=== PATIENT | male | born 1960 | race Caucasian/White ===

== ENCOUNTER 2022-04-11 06:33 | Emergency (ER) | payer MEDICAID ==
[~2022-04-11] VITALS: Ht 172.7 cm; Wt 61.4 kg
[2022-04-11] MEDS ORDERED: HYDROcodone/acetaminophen 5mg/325mg tablet PO ONE (07:55)
[2022-04-11] MEDS ORDERED: ketorolac tromethamine 15mg/ml inj. IV ONE (07:55)
[2022-04-11] MEDS ORDERED: morphine 4 MG/ML inj SYRINge IV ONE (07:55)
[2022-04-11] MEDS ORDERED: HYDR-3965 PO (08:07)
[2022-04-11 08:21] VITALS: BP 157/84
== END 2022-04-11 08:23 | disposition home or self-care (01) ==
LOC: ER 06:36
DX: S46.011A Strain of muscle(s) and tendon(s) of the rotator cuff of right shoulder, initial encounter (principal); E78.00 Pure hypercholesterolemia, unspecified; I11.9 Hypertensive heart disease without heart failure; K21.9 Gastro-esophageal reflux disease without esophagitis; Z88.6 Allergy status to analgesic agent; Z88.5 Allergy status to narcotic agent; F17.200 Nicotine dependence, unspecified, uncomplicated; W19.XXXA Unspecified fall, initial encounter; Y93.89 Activity, other specified; Y92.89 Other specified places as the place of occurrence of the external cause; Y99.8 Other external cause status
CPT/HCPCS: 73030; 96374; 96375; 99284; J1885; J2270

== ENCOUNTER 2022-08-24 14:38 | Outpatient (CLI) | payer BC ==
[2022-08-24 15:59] LABS: BASOPHILS # (AUTO) 0.1 X10'3 (0-0.2); BASOPHILS % (AUTO) 1.1 % (0-1); EOSINOPHILS # (AUTO) 0.1 X10'3 (0-0.9); LYMPHOCYTES % (AUTO) 20.2 % (21-51); MEAN CORPUSCULAR HEMOGLOBIN 36.4 PG (27.0-31.0); MEAN CORPUSCULAR HGB CONC 34.1 g/dL (33.0-36.5); MEAN CORPUSCULAR VOLUME 106.9 FL (78-98); MEAN PLATELET VOLUME 6.8 FL (7.4-10.4); MONOCYTES # (AUTO) 0.4 X10'3 (0-0.9); MONOCYTES % (AUTO) 9.1 % (2-12); NEUTROPHILS # (AUTO) 3.2 X10'3 (1.8-7.7); NEUTROPHILS % (AUTO) 66.6 % (42-75); PRE OP HEMATOCRIT 47.8 % (42.0-52.0); PRE OP HEMOGLOBIN 16.3 g/dL (14.0-17.9); PRE OP PLATELET COUNT 102 X10'3 (140-440); RED BLOOD COUNT 4.47 X10'6 (4.70-6.10); RED CELL DISTRIBUTION WIDTH 13.9 % (11.5-14.5)
[2022-08-24 15:59] LABS: CLARITY,URINE CLEAR (Clear); COLOR,URINE YELLOW (Yellow); GLUCOSE, URINE 100 mg/dl (Neg); KETONES,URINE NEGATIVE (Neg); LEUKOCYTE ESTERASE ,URINE NEGATIVE (Neg); NITRITES, URINE NEGATIVE (Neg); OCCULT BLOOD,URINE TRACE-INTACT (Neg); PH,URINE 7.5 (4.8-8.0); PROTEIN,URINE NEGATIVE (Neg)
[2022-08-24 16:05] LABS: UA COLLECTION TYPE CLN CATCH MIDSTREAM
[2022-08-24 16:06] LABS: HYALINE CASTS 0-3 /LPF (NEGATIVE); MUCUS STRANDS FEW /LPF (Neg); SQUAMOUS EPITHELIAL CELL,UR FEW /LPF (FEW)
[2022-08-24 16:07] LABS: BACTERIA,URINE FEW /HPF (Neg); WBC,URINE 0-4 /HPF (0-4)
[2022-08-24 16:27] LABS: ALBUMIN 3.7 G/DL (3.4-5.0); ALKALINE PHOSPHATASE 78 IU/L (46-116); BLOOD UREA NITROGEN 10 MG/DL (7-18); CALCIUM 9.7 MG/DL (8.5-10.1); CHLORIDE 103 MMOL/L (99-107); CREATININE 1.11 MG/DL (0.60-1.10); PRE OP ALT 76 U/L (30-65); PRE OP ANION GAP 8 (8-16); PRE OP AST 102 U/L (10-37); PRE OP BILIRUB, TOTAL 1.1 MG/DL (0.0-1.0); PRE OP GLUCOSE 84 MG/DL (70-104); PRE OP POTASSIUM 4.1 MMOL/L (3.4-5.1); PRE OP SODIUM 143 MMOL/L (135-145); TOTAL CARBON DIOXIDE 32.4 MMOL/L (24-32); TOTAL PROTEIN 7.3 G/DL (6.4-8.2); eGFR 67 ML/MIN
[2022-08-24] MEDS ORDERED: LOSA1TAB36 PO (17:10)
[2022-08-24] MEDS ORDERED: LANS30CA37 PO (17:10)
[2022-08-24] MEDS ORDERED: SILD100T70 PO (17:17)
[2022-08-24] MEDS ORDERED: LOSA25TA41 PO (17:17)
[2022-08-24] MEDS ORDERED: ATOR40TA72 PO (17:17)
[2022-08-24] MEDS ORDERED: BROM2.5T18 PO (17:17)
[2022-08-24] MEDS ORDERED: METO25TA6 PO (17:17)
[2022-08-24] MEDS ORDERED: ASPI-1475 PO (17:17)
[2022-08-24] MEDS ORDERED: CLOP75TA34 PO (17:17)
[2022-08-24] MEDS ORDERED: PANT40TA54 PO (17:17)
== END 2022-08-24 23:59 | disposition home or self-care (01) ==
LOC: LAB 14:38 → EDSTATUS 08-30 10:30
PROVIDERS: ATTEND Surgery
DX: Z01.812 Encounter for preprocedural laboratory examination (principal); K40.20 Bilateral inguinal hernia, without obstruction or gangrene, not specified as recurrent
CPT/HCPCS: 36415; 80053; 81001; 85025

== ENCOUNTER 2022-09-03 20:09 | Inpatient (IN) | payer BC ==
[~2022-09-03] VITALS: Ht 172.7 cm; Wt 56.8 kg
[~2022-09-03 20:09] MED LIST: ASPI-1475 PO; ATOR40TA72 PO; BROM2.5T18 PO; CLOP75TA34 PO; LOSA25TA41 PO; METO25TA6 PO; PANT40TA54 PO; SILD100T70 PO; heparin 10,000 units/1 ML INJ ONE; heparin, porcine-25,000 units/D5-250ml premix IV ONE
[2022-09-03] MEDS ORDERED: nitroGLYCERIN 0.4mg/hour patch TD ONE (20:30)
[2022-09-03] MEDS ORDERED: ondansetron/PF 4mg/2ml inj IV ONE (20:35)
[2022-09-03] MEDS ORDERED: midazolam 1 mg/ML 2ml injection ONE (20:43)
[2022-09-03] MEDS ORDERED: nitroGLYCERIN-Tridil 50MG/D5W 250 ML IV ONE (20:43)
[2022-09-03] MEDS ORDERED: fentaNYL/PF 50MCG/1 ML 2ML syringe ONE (20:43)
[2022-09-03] MEDS ORDERED: LIDOcaine 1% 30ml preserv. free vial ONE (20:43)
[2022-09-03] MEDS ORDERED: verapamil 2.5 mg/ml inj IV ONE (20:43)
[2022-09-03] MEDS ORDERED: HEPARIN SOD,PORK IN 0.45% NACL 0 ML IV ONE (20:43)
[2022-09-03] MEDS ORDERED: iohexol 350MG/ML 100ml bottle IV ONE ×2 (20:44→21:44)
[2022-09-03] MEDS ORDERED: heparin 1,000unit/ml 10ml vial 10 ML ONE (20:44)
[2022-09-03] MEDS ORDERED: nitroGLYCERIN 0.4mg SUBLingual tab SL ONE (20:44)
[2022-09-03] MEDS ORDERED: heparin, porcine 5000 units/ml vial IV STA (20:44)
[2022-09-03 20:45] LABS: EOSINOPHILS # (AUTO) 0.2 X10'3 (0-0.9); MEAN PLATELET VOLUME 6.4 FL (7.4-10.4); MONOCYTES # (AUTO) 0.5 X10'3 (0-0.9); NEUTROPHILS # (AUTO) 1.9 X10'3 (1.8-7.7)
[2022-09-03] MEDS ORDERED: nitroGLYCERIN 0.4mg SUBLingual tab SL PRN (20:45)
[2022-09-03 20:46] LABS: BASOPHILS % (AUTO) 1.1 % (0-1); EOSINOPHILS % (AUTO) 5.8 % (0-6); HEMATOCRIT 45.4 % (42.0-52.0); HEMOGLOBIN 15.9 g/dl (14.0-17.9); LYMPHOCYTES # (AUTO) 1.4 X10'3 (1.1-4.8); LYMPHOCYTES % (AUTO) 34.1 % (21-51); MEAN CORPUSCULAR HEMOGLOBIN 36.7 PG (27.0-31.0); MEAN CORPUSCULAR VOLUME 104.7 FL (78-98); MONOCYTES % (AUTO) 11.7 % (2-12); NEUTROPHILS % (AUTO) 47.3 % (42-75); PLATELET COUNT 99 X10'3 (140-440); RED BLOOD COUNT 4.34 X10'6 (4.70-6.10); WHITE BLOOD COUNT 4.1 X10'3 (4.5-11.0)
[2022-09-03] MEDS: morphine 4 MG/ML inj SYRINge IV ONE (20:46)
[2022-09-03 20:48] LABS: ALANINE AMINOTRANSFERASE 77 U/L (12-78); ALBUMIN 3.8 G/DL (3.4-5.0); ALBUMIN/GLOBULIN RATIO 1.1 (1.1-1.5); ALKALINE PHOSPHATASE 82 IU/L (46-116); ANION GAP 7 (8-16); ASPARTATE AMINO TRANSFERASE 99 U/L (10-37); BILIRUBIN,TOTAL 0.6 MG/DL (0.1-1.0); BLOOD UREA NITROGEN 11 MG/DL (7-18); BUN/CREATININE RATIO 12.1 (5.4-32.0); CALCIUM 9.9 MG/DL (8.5-10.1); CHLORIDE 106 MMOL/L (99-107); CREATININE 0.91 MG/DL (0.60-1.10); GLUCOSE 84 MG/DL (70-104); POTASSIUM 3.9 MMOL/L (3.5-5.1); SODIUM 145 MMOL/L (135-145); TOTAL CARBON DIOXIDE 31.7 MMOL/L (24-32); TOTAL PROTEIN 7.3 G/DL (6.4-8.2); eGFR 85 ML/MIN
[2022-09-03] MEDS ORDERED: heparin 10,000 units/1 ML INJ IV PRN (20:50)
[2022-09-03] MEDS ORDERED: heparin 25,000 UNIT/250ml bag 250 ML IV PRN (20:50)
[2022-09-03] MEDS ORDERED: heparin 10,000 units/1 ML INJ IV ONE ×2 (20:50)
[2022-09-03] MEDS ORDERED: ticagrelor 90mg tablet ONE (23:09)
[2022-09-04] VITALS (16 sets, daily range): BP systolic 91–141; BP diastolic 55–86
--- NOTE | 2022-09-04 00:30 | NUR ---
Patient in room CICU 2013. I have received report from Sudheer LEWIS and had the opportunity to ask questions and assume patient care. Patient arrived to floor a/o x4, O2 in mid 80s but vitals otherwise stable. 2L NC cannula placed. R Femoral sheath site palpated with no hematoma noted. Good pulse to R posterior tibeal artery. Patient now resting in bed. Will continue to monitor patient.
[2022-09-04] MEDS: morphine 4 MG/ML inj SYRINge IV ONE (00:41)
[2022-09-04] MEDS ORDERED: HYDROcodone/acetaminophen 10/325mg tab PO PRN ×2 (01:15)
[2022-09-04] MEDS ORDERED: OXAZEpam 15mg capsule PO PRN (01:15)
[2022-09-04] MEDS ORDERED: aspirin 81mg, enteric-coated 1 TAB TABLET.DR PO ONE (01:19)
[2022-09-04] MEDS ORDERED: aspirin 81mg, enteric-coated 1 TAB TABLET.DR PO SCH ×2 (01:19→08:00)
[2022-09-04] MEDS ORDERED: losartan 25mg tablet PO ONE (01:20)
[2022-09-04] MEDS ORDERED: losartan 25mg tablet PO SCH ×2 (01:20→08:00)
[2022-09-04] MEDS ORDERED: atorvastatin 20mg tablet PO SCH (01:21)
[2022-09-04] MEDS ORDERED: ticagrelor 90mg tablet PO ONE (01:22)
[2022-09-04] MEDS ORDERED: normal saline 1000ml 1,000 ML IV SCH (01:25)
[2022-09-04] MEDS ORDERED: albuterol 2.5 MG/3 ML nebule NEB PRN (01:30)
[2022-09-04] MEDS ORDERED: ipratropium/albuterol 3ml nebule NEB PRN (01:30)
[2022-09-04] MEDS: metoprolol tartrate 25mg tablet PO SCH ×2 (01:59→07:18)
[2022-09-04] MEDS ORDERED: oxyCODONE IR 5mg (immed. release) tablet PO PRN (02:55)
[2022-09-04 03:20] LABS: BASOPHILS # (AUTO) 0.1 X10'3 (0-0.2); BASOPHILS % (AUTO) 1.1 % (0-1); EOSINOPHILS # (AUTO) 0.2 X10'3 (0-0.9); EOSINOPHILS % (AUTO) 4.3 % (0-6); HEMATOCRIT 38.3 % (42.0-52.0); HEMOGLOBIN 13.1 g/dl (14.0-17.9); LYMPHOCYTES # (AUTO) 0.9 X10'3 (1.1-4.8); LYMPHOCYTES % (AUTO) 17.3 % (21-51); MEAN CORPUSCULAR HEMOGLOBIN 36.5 PG (27.0-31.0); MEAN CORPUSCULAR HGB CONC 34.2 g/dL (33.0-36.5); MEAN CORPUSCULAR VOLUME 106.9 FL (78-98); MEAN PLATELET VOLUME 6.9 FL (7.4-10.4); MONOCYTES # (AUTO) 0.3 X10'3 (0-0.9); MONOCYTES % (AUTO) 6.2 % (2-12); NEUTROPHILS # (AUTO) 3.6 X10'3 (1.8-7.7); NEUTROPHILS % (AUTO) 71.1 % (42-75); PLATELET COUNT 94 X10'3 (140-440); RED BLOOD COUNT 3.58 X10'6 (4.70-6.10); RED CELL DISTRIBUTION WIDTH 14.3 % (11.5-14.5); WHITE BLOOD COUNT 5.1 X10'3 (4.5-11.0)
[2022-09-04 03:34] LABS: ALANINE AMINOTRANSFERASE 61 U/L (12-78); ALBUMIN/GLOBULIN RATIO 1.1 (1.1-1.5); ALKALINE PHOSPHATASE 62 IU/L (46-116); ANION GAP 9 (8-16); ASPARTATE AMINO TRANSFERASE 71 U/L (10-37); BLOOD UREA NITROGEN 18 MG/DL (7-18); CALCIUM 8.4 MG/DL (8.5-10.1); CHLORIDE 106 MMOL/L (99-107); CHOL/HDL RATIO 1.6 (0.00-4.99); CHOLESTEROL 147 MG/DL (0-200); CREATININE 0.72 MG/DL (0.60-1.10); GLUCOSE 104 MG/DL (70-104); HDL CHOLESTEROL 94 MG/DL (35-60); LDL CHOLESTEROL 42 MG/DL (50-100); MAGNESIUM 1.5 MG/DL (1.5-2.4); POTASSIUM 3.9 MMOL/L (3.5-5.1); SODIUM 144 MMOL/L (135-145); TOTAL CARBON DIOXIDE 29.1 MMOL/L (24-32); TOTAL PROTEIN 5.8 G/DL (6.4-8.2); TRIGLYCERIDES 45 MG/DL (20-135); eGFR > 90 ML/MIN
[2022-09-04 03:45] LABS: APTT > 139 SECONDS (22-32)
[2022-09-04] MEDS: oxyCODONE IR 5mg (immed. release) tablet PO PRN ×2 (03:51→14:10)
--- NOTE | 2022-09-04 06:22 | NUR ---
Problems reprioritized. Patient report given, questions answered & plan of care reviewed with Lisa LEWIS.
[2022-09-04] MEDS ORDERED: ticagrelor 90mg tablet PO SCH (08:00)
[2022-09-04] MEDS ORDERED: pantoprazole 40mg Tablet.DR PO SCH (08:00)
[2022-09-04] MEDS ORDERED: non-formulary drug (Metoprolol Tartrate 1 TAB) PO SCH (08:00)
[2022-09-04] MEDS ORDERED: budesonide 0.5mg/2ml UD nebule IH SCH (08:00)
[2022-09-04 09:03] LABS: APTT 46 SECONDS (22-32)
--- NOTE | 2022-09-04 09:52 | NUR ---
LORENZO Romero in to see pt. Stated to dc Hep. gtt if latest Troponin is trending down. Lab is pending. Cannot pull sheath while Heparin gtt is infusing.
--- NOTE | 2022-09-04 11:47 | NUR ---
Hep gtt stopped as Trops. decreased. ACT 126. Right groin sheath dc'd. Manual pressure held for 20", Fem Stop placed on pt.
--- NOTE | 2022-09-04 12:51 | NUR ---
Pt. found standing up at bedside despite instructions to lie flat and not get OOB. Pt. put back in bed. Right groin site clear. Bed alarm activated.
--- NOTE | 2022-09-04 15:49 | NUR ---
Pt. signed AMA form as soon as RN removed Femstop. Adriana artis'd. RN left message with Dr. Davila's office as he is "with patients."
--- NOTE | 2022-09-04 15:56 | NUR ---
Pt. ambulated out of CICU after signing AMA forms with steady gait and no evidence of bleeding. Slight bruising was noted at right groin.
[2022-09-04] MEDS ORDERED: TICA90TA PO (16:13)
[2022-09-04] MEDS ORDERED: ATOR80TA PO (16:13)
[2022-09-04] MEDS ORDERED: BROMOCRIPTINE 2.5 MG PO SCH (20:00)
[2022-09-04] MEDS ORDERED: non-formulary drug (Atorvastatin Calcium 1 TAB) PO SCH (21:00)
== END 2022-09-04 15:56 | disposition left against medical advice (07) | DRG 250 ==
LOC: ER 20:09 → CICU 2S 23:56
PROVIDERS: ADMIT Internal Medicine Cardiovascular Disease; ATTEND Family Medicine
PROC: 4A023N7 Measurement of Cardiac Sampling and Pressure, Left Heart, Percutaneous Approach (ICD-10-PCS; principal; 2022-09-03)
PROC: 02703ZZ Dilation of Coronary Artery, One Artery, Percutaneous Approach (ICD-10-PCS; 2022-09-03)
PROC: B2111ZZ Fluoroscopy of Multiple Coronary Arteries using Low Osmolar Contrast (ICD-10-PCS; 2022-09-03)
PROC: B2151ZZ Fluoroscopy of Left Heart using Low Osmolar Contrast (ICD-10-PCS; 2022-09-03)
PROC: B240ZZ3 Ultrasonography of Single Coronary Artery, Intravascular (ICD-10-PCS; 2022-09-03)
DX: I21.3 ST elevation (STEMI) myocardial infarction of unspecified site (principal); J96.00 Acute respiratory failure, unspecified whether with hypoxia or hypercapnia; I50.20 Unspecified systolic (congestive) heart failure; E78.00 Pure hypercholesterolemia, unspecified; F17.210 Nicotine dependence, cigarettes, uncomplicated; F32.A Depression, unspecified; F41.9 Anxiety disorder, unspecified; I25.119 Atherosclerotic heart disease of native coronary artery with unspecified angina pectoris; Z20.822 Contact with and (suspected) exposure to COVID-19; I44.7 Left bundle-branch block, unspecified; Z60.2 Problems related to living alone; I11.0 Hypertensive heart disease with heart failure; K21.9 Gastro-esophageal reflux disease without esophagitis; F10.90 Alcohol use, unspecified, uncomplicated; J44.9 Chronic obstructive pulmonary disease, unspecified; K40.20 Bilateral inguinal hernia, without obstruction or gangrene, not specified as recurrent; Z53.29 Procedure and treatment not carried out because of patient's decision for other reasons; Z80.1 Family history of malignant neoplasm of trachea, bronchus and lung; I25.2 Old myocardial infarction; Z82.49 Family history of ischemic heart disease and other diseases of the circulatory system; Z87.442 Personal history of urinary calculi; Z95.5 Presence of coronary angioplasty implant and graft; Z88.5 Allergy status to narcotic agent; Z79.899 Other long term (current) drug therapy; Z79.82 Long term (current) use of aspirin; Z71.6 Tobacco abuse counseling
CPT/HCPCS: 36415; 71045; 80053; 80061; 83735; 83880; 84484; 85025; 85347; 85610; 85730; 87811; 92920; 92978; 93005; 93306; 93458; 94760; 99152; 99153; 99285; A6258; A6449; C1725; C1751; C1753; C1769; C1894; G0378; J1644; J2250; J2270; J2405; J3010; J3490; J7040; Q9967

== ENCOUNTER 2023-02-27 15:45 | Emergency (ER) | payer BC ==
[~2023-02-27] VITALS: Ht 172.7 cm; Wt 59.0 kg
[~2023-02-27 15:45] MED LIST changes: -ATOR40TA72 PO; -CLOP75TA34 PO; -SILD100T70 PO; +TICA90TA PO; -heparin 10,000 units/1 ML INJ ONE; -heparin, porcine-25,000 units/D5-250ml premix IV ONE
[2023-02-27 16:15] LABS: HEMOGLOBIN 15.1 g/dl (14.0-17.9); LYMPHOCYTES # (AUTO) 0.8 X10'3 (1.1-4.8); MEAN CORPUSCULAR HEMOGLOBIN 33.7 PG (27.0-31.0); MONOCYTES # (AUTO) 0.4 X10'3 (0-0.9); NEUTROPHILS # (AUTO) 5.6 X10'3 (1.8-7.7); WHITE BLOOD COUNT 6.9 X10'3 (4.5-11.0)
[2023-02-27 16:17] LABS: BASOPHILS # (AUTO) 0.1 X10'3 (0-0.2); BASOPHILS % (AUTO) 1.3 % (0-1); EOSINOPHILS % (AUTO) 0.6 % (0-6); HEMATOCRIT 44.8 % (42.0-52.0); LYMPHOCYTES % (AUTO) 11.3 % (21-51); MEAN CORPUSCULAR HGB CONC 33.6 g/dL (33.0-36.5); MEAN CORPUSCULAR VOLUME 100.2 FL (78-98); MEAN PLATELET VOLUME 6.8 FL (7.4-10.4); MONOCYTES % (AUTO) 5.6 % (2-12); NEUTROPHILS % (AUTO) 81.2 % (42-75); PLATELET COUNT 115 X10'3 (140-440); RED BLOOD COUNT 4.47 X10'6 (4.70-6.10)
[2023-02-27 16:30] LABS: ALANINE AMINOTRANSFERASE 65 U/L (12-78); ALBUMIN 3.3 G/DL (3.4-5.0); ALBUMIN/GLOBULIN RATIO 0.8 (1.1-1.5); ALKALINE PHOSPHATASE 139 IU/L (46-116); ANION GAP 9 (8-16); ASPARTATE AMINO TRANSFERASE 147 U/L (10-37); BILIRUBIN,TOTAL 1.1 MG/DL (0.1-1.0); BLOOD UREA NITROGEN 4 MG/DL (7-18); CALCIUM 8.9 MG/DL (8.5-10.1); CHLORIDE 101 MMOL/L (99-107); GLUCOSE 108 MG/DL (70-104); POTASSIUM 3.3 MMOL/L (3.5-5.1); SODIUM 140 MMOL/L (135-145); TOTAL CARBON DIOXIDE 29.6 MMOL/L (24-32); TOTAL PROTEIN 7.4 G/DL (6.4-8.2); eGFR > 90 ML/MIN
[2023-02-27] MEDS ORDERED: aspirin 81mg tab.chew PO ONE (16:30)
[2023-02-27 16:32] LABS: PLATELET ESTIMATE DECREASED
[2023-02-27] MEDS ORDERED: metoprolol tartrate 1mg/ml inj IV ONE (16:32)
[2023-02-27 16:33] LABS: ANISOCYTOSIS 2+
[2023-02-27 16:39] LABS: MAGNESIUM 1.5 MG/DL (1.5-2.4)
[2023-02-27] MEDS: normal saline 500ml IV soln 500 ML IV SCH ×2 (16:45→18:30)
[2023-02-27 16:54] LABS: BUN/CREATININE RATIO 4.8 (10.0-20.0); CREATININE 0.83 MG/DL (0.60-1.10)
[2023-02-27] MEDS ORDERED: iohexol 350MG/ML 100ml bottle IV ONE (19:22)
[2023-02-27] MEDS ORDERED: diazepam inj 5 MG/ML inj. IV ONE (19:55)
[2023-02-27] MEDS ORDERED: CHLO25CA10 PO (20:45)
[2023-02-27 21:14] VITALS: BP 147/76
== END 2023-02-27 21:16 | disposition home or self-care (01) ==
LOC: ER 15:46
DX: F10.239 Alcohol dependence with withdrawal, unspecified (principal); R42 Dizziness and giddiness; R07.89 Other chest pain; I25.10 Atherosclerotic heart disease of native coronary artery without angina pectoris; E78.00 Pure hypercholesterolemia, unspecified; I10 Essential (primary) hypertension; I25.2 Old myocardial infarction; K21.9 Gastro-esophageal reflux disease without esophagitis; Z95.5 Presence of coronary angioplasty implant and graft; Y90.0 Blood alcohol level of less than 20 mg/100 ml
CPT/HCPCS: 36415; 71045; 71275; 80053; 83735; 83880; 84484; 85008; 85025; 85379; 96361; 96374; 96375; 99285; J3360; J3490; J7030; J7040; Q9967